=== PATIENT | female | born 1975 | race Caucasian/White ===

== ENCOUNTER 2023-04-25 21:49 | Inpatient (IN) | payer OTHER ==
[2023-04-25 23:30] VITALS: BMI 29.3
[2023-04-25] MEDS ORDERED: Ondansetron PF 4 MG/2 ML Vial IVP PRN (23:42)
[2023-04-25] MEDS ORDERED: Acetaminophen 650 MG Suppository PR PRN (23:42)
[2023-04-25] MEDS ORDERED: Ondansetron ODT 4 MG TAB PO PRN (23:42)
[2023-04-25] MEDS ORDERED: Ipratropium/Albuterol 3 ML NEB NEB PRN (23:44)
[2023-04-25] MEDS ORDERED: methylPREDNISolone Sod Succ 40 MG VIAL IVP SCH (23:45)
[2023-04-25] MEDS ORDERED: Dextrose 50% Abboject 50 ML SYRINGE SLOW IVP PRN (23:49)
[2023-04-25] MEDS ORDERED: Glucagon 1 MG/ML KIT IM PRN (23:49)
[2023-04-25] MEDS ORDERED: Dextrose 5% in Water 1,000 ML IV PRN (23:49)
[2023-04-26] MEDS ORDERED: methylPREDNISolone Sod Succ 40 MG VIAL IVP SCH ×2 (00:15→09:00)
[2023-04-26] MEDS: Acetaminophen 325 MG TAB PO PRN ×2 (00:36→21:23)
[2023-04-26] MEDS: cefTRIAXone\\ROCEPHIN 1 GM in Sodium Chloride 0.9% 100 ML IVPB SCH (00:39)
[2023-04-26] MEDS: Azithromycin 500 MG in Sodium Chloride 0.9% 250 ML 250 ML IVPB SCH (00:43)
[2023-04-26] MEDS: Ipratropium/Albuterol 3 ML NEB NEB SCH ×6 (01:56→22:31)
[2023-04-26 06:06] LABS: Hematocrit 41.5 % (36.0-47.0); Hemoglobin 13.9 g/dL (12.0-16.0); Mean Corpuscular HGB CONC 33.5 g/dL (32.0-36.0); Mean Corpuscular Hemoglobin 29.1 pg (27.0-31.0); Mean Platelet Volume 10.2 fL (7.4-10.4); Platelet Count 312 10x3/uL (130-400); RBC Distribution Width 14.1 % (11.5-14.5); Red Blood Cell (RBC) Count 4.77 mill/uL (4.20-5.40); White Blood Cell (WBC) Count 11.1 10x3/uL (4.8-10.8)
[2023-04-26] MEDS: HumaLOG 300 UNITS/3 ML VIAL SC PRN ×4 (06:08→21:18)
[2023-04-26 06:22] LABS: Delete Auto Diff?? YES; Manual Diff?? YES
[2023-04-26 06:31] LABS: Anion Gap 19 mmol/L (10-20); BUN (Urea Nitrogen) 12 mg/dL (7.0-18.7); Calc. Creatinine Clearance 130 mL/min (70-130); Calcium 8.8 mg/dL (7.8-10.44); Carbon Dioxide 20 mmol/L (22-29); Chloride 104 mmol/L (98-107); Estimated GFR 104; Glucose 204 mg/dL (70-105); Potassium 3.8 mmol/L (3.5-5.1); Sodium 139 mmol/L (136-145)
[2023-04-26 07:10] LABS: Band 8 % (5-11); CellaVision Operator ID LAB.GE; Lymphocytes 5 % (21-51); Monocytes 2 % (0-10); Neutrophil 83 % (42-75); Platelet Adequacy Comment Platelets Normal; Polychromasia SLIGHT = 2-3 cells HPF (0-2); Reactive Lymphocytes 2 % (0-10); Total Cell Count 100
[2023-04-26] MEDS: Insulin Glargine 30 UNITS/0.3 ML VIAL SC SCH ×3 (08:41→21:17)
[2023-04-26] MEDS: Gabapentin 300 MG CAP PO SCH ×2 (08:41→21:17)
[2023-04-26] MEDS: methylPREDNISolone Sod Succ 40 MG VIAL IVP SCH (08:42)
[2023-04-26] MEDS ORDERED: Valsartan 80 MG TAB PO SCH (09:00)
[2023-04-26] MEDS ORDERED: Non-Formulary Item 1 EACH (Gabapentin [Gabapentin] 600 MG Tablet) PO SCH (09:00)
[2023-04-26] MEDS ORDERED: Simvastatin 40 MG TAB PO SCH (09:00)
[2023-04-26] MEDS: FLUoxetine HCl 10 MG CAP PO SCH (09:40)
[2023-04-26] MEDS: Empagliflozin 25 MG TAB PO SCH (21:16)
[2023-04-26] MEDS: Valsartan 80 MG TAB PO SCH (21:17)
[2023-04-26] MEDS: Atorvastatin Calcium 20 MG TAB PO SCH (21:17)
[2023-04-27] MEDS: cefTRIAXone\\ROCEPHIN 1 GM in Sodium Chloride 0.9% 100 ML IVPB SCH (00:42)
[2023-04-27] MEDS ORDERED: GUAIFENESIN SF SOLN 200 MG/10 ML UDCUP PO PRN (00:43)
[2023-04-27] MEDS: Azithromycin 500 MG in Sodium Chloride 0.9% 250 ML 250 ML IVPB SCH (00:45)
[2023-04-27] MEDS: Acetaminophen 500 MG TAB PO PRN (01:11)
[2023-04-27] MEDS: Ipratropium/Albuterol 3 ML NEB NEB SCH ×6 (01:58→22:28)
[2023-04-27] MEDS: Gabapentin 300 MG CAP PO SCH ×2 (08:12→21:18)
[2023-04-27] MEDS: methylPREDNISolone Sod Succ 40 MG VIAL IVP SCH (08:13)
[2023-04-27] MEDS: FLUoxetine HCl 10 MG CAP PO SCH (08:13)
[2023-04-27] MEDS: Insulin Glargine 30 UNITS/0.3 ML VIAL SC SCH ×2 (08:13→21:18)
[2023-04-27] MEDS ORDERED: Benzocaine/Menthol 1 LOZ LOZ PO PRN (09:42)
[2023-04-27] MEDS: HumaLOG 300 UNITS/3 ML VIAL SC PRN ×3 (12:36→21:19)
[2023-04-27] MEDS: guaiFENesin/DM ER PO SCH (21:16)
[2023-04-27] MEDS: Valsartan 80 MG TAB PO SCH (21:16)
[2023-04-27] MEDS: Empagliflozin 25 MG TAB PO SCH (21:17)
[2023-04-27] MEDS: Atorvastatin Calcium 20 MG TAB PO SCH (21:17)
[2023-04-28] MEDS: cefTRIAXone\\ROCEPHIN 1 GM in Sodium Chloride 0.9% 100 ML IVPB SCH (00:03)
[2023-04-28] MEDS: Azithromycin 500 MG in Sodium Chloride 0.9% 250 ML 250 ML IVPB SCH (00:04)
[2023-04-28] MEDS: Ipratropium/Albuterol 3 ML NEB NEB SCH ×6 (01:59→22:45)
[2023-04-28] MEDS ORDERED: Magnesium 2 GM/50 ML(in water) 2 GM in Premix 1 BAG IVPB SCH (08:30)
[2023-04-28] MEDS: Gabapentin 300 MG CAP PO SCH ×2 (08:44→20:06)
[2023-04-28] MEDS: FLUoxetine HCl 10 MG CAP PO SCH (08:44)
[2023-04-28] MEDS: guaiFENesin/DM ER PO SCH ×2 (08:44→20:07)
[2023-04-28] MEDS: Insulin Glargine 30 UNITS/0.3 ML VIAL SC SCH ×2 (08:45→20:07)
[2023-04-28] MEDS: methylPREDNISolone Sod Succ 40 MG VIAL IVP SCH ×3 (11:29→23:27)
[2023-04-28] MEDS: Acetaminophen 500 MG TAB PO PRN ×2 (14:04→23:26)
[2023-04-28] MEDS: Empagliflozin 25 MG TAB PO SCH (20:06)
[2023-04-28] MEDS: Valsartan 80 MG TAB PO SCH (20:06)
[2023-04-28] MEDS: Atorvastatin Calcium 20 MG TAB PO SCH (20:06)
[2023-04-28] MEDS: Montelukast Sodium 10 mg Tablet PO SCH (20:07)
[2023-04-29] MEDS: cefTRIAXone\\ROCEPHIN 1 GM in Sodium Chloride 0.9% 100 ML IVPB SCH (00:30)
[2023-04-29] MEDS: Azithromycin 500 MG in Sodium Chloride 0.9% 250 ML 250 ML IVPB SCH (01:14)
[2023-04-29] MEDS: Ipratropium/Albuterol 3 ML NEB NEB SCH ×6 (03:01→23:35)
[2023-04-29] MEDS: methylPREDNISolone Sod Succ 40 MG VIAL IVP SCH ×3 (05:27→17:15)
[2023-04-29] MEDS: Insulin Glargine 30 UNITS/0.3 ML VIAL SC SCH ×2 (08:41→21:28)
[2023-04-29] MEDS: FLUoxetine HCl 10 MG CAP PO SCH (08:42)
[2023-04-29] MEDS: guaiFENesin/DM ER PO SCH ×2 (08:42→21:28)
[2023-04-29] MEDS: Gabapentin 300 MG CAP PO SCH ×2 (08:42→21:27)
[2023-04-29] MEDS: Acetaminophen 500 MG TAB PO PRN (08:48)
[2023-04-29] MEDS: HumaLOG 300 UNITS/3 ML VIAL SC PRN (14:29)
[2023-04-29] MEDS: Valsartan 80 MG TAB PO SCH (21:27)
[2023-04-29] MEDS: Empagliflozin 25 MG TAB PO SCH (21:28)
[2023-04-29] MEDS: Atorvastatin Calcium 20 MG TAB PO SCH (21:28)
[2023-04-29] MEDS: Montelukast Sodium 10 mg Tablet PO SCH (21:28)
[2023-04-30] MEDS: cefTRIAXone\\ROCEPHIN 1 GM in Sodium Chloride 0.9% 100 ML IVPB SCH (00:02)
[2023-04-30] MEDS: methylPREDNISolone Sod Succ 40 MG VIAL IVP SCH ×3 (00:02→12:37)
[2023-04-30] MEDS: Azithromycin 500 MG in Sodium Chloride 0.9% 250 ML 250 ML IVPB SCH (01:48)
[2023-04-30] MEDS: Acetaminophen 500 MG TAB PO PRN ×2 (01:50→09:51)
[2023-04-30] MEDS: HumaLOG 300 UNITS/3 ML VIAL SC PRN ×3 (05:01→17:46)
[2023-04-30] MEDS: Ipratropium/Albuterol 3 ML NEB NEB SCH ×5 (07:17→18:21)
[2023-04-30] MEDS: Gabapentin 300 MG CAP PO SCH ×2 (09:46→21:10)
[2023-04-30] MEDS: guaiFENesin/DM ER PO SCH ×2 (09:47→21:10)
[2023-04-30] MEDS: FLUoxetine HCl 10 MG CAP PO SCH (09:47)
[2023-04-30] MEDS: Insulin Glargine 30 UNITS/0.3 ML VIAL SC SCH ×2 (09:48→21:11)
[2023-04-30] MEDS: tiZANidine HCl 4 MG TAB PO PRN (09:51)
[2023-04-30] MEDS: Empagliflozin 25 MG TAB PO SCH (21:10)
[2023-04-30] MEDS: Montelukast Sodium 10 mg Tablet PO SCH (21:10)
[2023-04-30] MEDS: Valsartan 80 MG TAB PO SCH (21:10)
[2023-04-30] MEDS: Atorvastatin Calcium 20 MG TAB PO SCH (21:10)
[2023-05-01] MEDS: cefTRIAXone\\ROCEPHIN 1 GM in Sodium Chloride 0.9% 100 ML IVPB SCH (00:02)
[2023-05-01] MEDS: Acetaminophen 500 MG TAB PO PRN ×2 (00:07→04:53)
[2023-05-01] MEDS: Azithromycin 500 MG in Sodium Chloride 0.9% 250 ML 250 ML IVPB SCH (01:18)
[2023-05-01] MEDS: tiZANidine HCl 4 MG TAB PO PRN (04:53)
[2023-05-01] MEDS: Ipratropium/Albuterol 3 ML NEB NEB SCH ×2 (06:23→12:16)
[2023-05-01] MEDS ORDERED: predniSONE 20 MG TAB PO SCH (08:00)
[2023-05-01] MEDS: guaiFENesin/DM ER PO SCH (08:55)
[2023-05-01] MEDS: Gabapentin 300 MG CAP PO SCH (08:56)
[2023-05-01] MEDS: Insulin Glargine 30 UNITS/0.3 ML VIAL SC SCH (08:57)
[2023-05-01] MEDS: FLUoxetine HCl 10 MG CAP PO SCH (11:18)
[2023-05-01] MEDS: HumaLOG 300 UNITS/3 ML VIAL SC PRN (18:22)
[2023-05-01 18:27] VITALS: TEMP 97.8
[2023-05-01 18:40] VITALS: BP 148/86
== END 2023-05-01 19:00 | disposition home or self-care (01) | DRG 194 ==
LOC: PREOBSVTOIN 21:58 → T4-A 22:58 → OBSVTOIN 23:42
PROVIDERS: ADMIT Student in an Organized Health Care Education/Training Program; ATTEND Internal Medicine
DX: J18.9 Pneumonia, unspecified organism (principal); J44.1 Chronic obstructive pulmonary disease with (acute) exacerbation; K52.9 Noninfective gastroenteritis and colitis, unspecified; I10 Essential (primary) hypertension; E11.42 Type 2 diabetes mellitus with diabetic polyneuropathy; Z88.5 Allergy status to narcotic agent; Z79.4 Long term (current) use of insulin; Z79.899 Other long term (current) drug therapy; E78.5 Hyperlipidemia, unspecified; Z90.710 Acquired absence of both cervix and uterus; Z98.890 Other specified postprocedural states; F17.210 Nicotine dependence, cigarettes, uncomplicated; F32.A Depression, unspecified
CPT/HCPCS: 36415; 36416; 80048; 85025; 94640; J0456; J0696; J1650; J1815; J2920; J3475; J3490; J7050; J7512; J7620; Q0162

== ENCOUNTER 2025-02-18 21:15 | Observation (INO) | payer OTHER ==
[2025-02-18 22:34] VITALS: BMI 33.8
[2025-02-18] MEDS ORDERED: Nitroglycerin 0.4 MG TAB (25 Tab Bottle) SL PRN (23:27)
[2025-02-19] MEDS ORDERED: Glucagon 1 MG/ML KIT IM PRN (00:15)
[2025-02-19] MEDS ORDERED: Dextrose 50% Abboject 50 ML SYRINGE SLOW IVP PRN (00:15)
[2025-02-19 02:03] LABS: Hb (HGBA1c) 4128.9263 umol/L
[2025-02-19 03:08] LABS: Cocaine Metabolite Screen Negative (Negative); THC/Cannabinoid Screen Negative (Negative); Tricyclic Screen Negative (Negative)
[2025-02-19 03:54] LABS: Cardiac Risk 4.6 (Less than 4.5); Cholesterol 119.0 mg/dl (< 200 Desired); HDL Cholesterol 26.0 mg/dL (>60 Neg Risk); LDL Cholesterol, Calculated 62.0 mg/dL; Triglycerides 157.0 mg/dL (Less than 150)
[2025-02-19] MEDS: Aspirin Chewable 81 MG TAB PO SCH (07:56)
[2025-02-19] MEDS: PNEUMOC 20-VAL CONJ-DIP CRM/PF 0.5 ML SYRINGE IM ONE (08:01)
[2025-02-19 11:52] VITALS: BP 151/90; TEMP 98.1
== END 2025-02-19 17:29 | disposition home or self-care (01) ==
LOC: OBS 22:12
PROVIDERS: ADMIT Student in an Organized Health Care Education/Training Program; ATTEND Hospitalist
DX: R07.9 Chest pain, unspecified (principal); I10 Essential (primary) hypertension; E78.5 Hyperlipidemia, unspecified; E11.9 Type 2 diabetes mellitus without complications; Z87.891 Personal history of nicotine dependence; Z88.5 Allergy status to narcotic agent; Z79.82 Long term (current) use of aspirin; Z79.899 Other long term (current) drug therapy; Z79.4 Long term (current) use of insulin
CPT/HCPCS: 36415; 36416; 78452; 80061; 80306; 83036; 84484; 93017; A9502; G0378; J2785